=== PATIENT | female | born 1975 | race Caucasian/White ===

== ENCOUNTER → 2023-06-25 14:53 | Outpatient (BNVA) | payer OTHER, SELFPAY | PROVIDERS: Family Provider Family Medicine; PCP Nurse Practitioner Family; Visit Provider Podiatrist Foot & Ankle Surgery | DX: M79.672 Pain in left foot; M25.572 Pain in left ankle and joints of left foot | CPT/HCPCS: 73630 ==

== ENCOUNTER → 2025-03-27 12:48 | Outpatient (BNVA) | payer OTHER, SELFPAY | PROVIDERS: Family Provider Family Medicine; PCP Nurse Practitioner Family; Visit Provider Podiatrist Foot & Ankle Surgery | DX: M25.572 Pain in left ankle and joints of left foot (principal); M79.672 Pain in left foot; M76.72 Peroneal tendinitis, left leg | CPT/HCPCS: 73610 ==